=== PATIENT | female | born 1965 | race Caucasian/White ===

== ENCOUNTER 2019-10-16 06:37 | Day surgery (SDC) | payer BC ==
[~2019-10-16 06:37] MED LIST: ACETAMINOPHEN 1,000 MG/100 ML BTL IVPB ONE; CLINDAMYCIN 600MG/50ML PREMIX 600 MG/50 ML BAG IVPB ONE; FAMOTIDINE 20MG TABLET PO ONE; MECLIZINE 25 MG TABLET PO ONE; METOCLOPRAMIDE 10 MG TABLET PO ONE
[2019-10-16] MEDS ORDERED: RINGERS SOLUTION,LACTATED 1,000 ML IV ONE (07:30)
--- NOTE | 2019-10-16 07:35 | History and Physical - [facility] ---
CHIEF COMPLAINT/HISTORY OF CHIEF COMPLAINT: This patient presents with a history of intractable lumbar radiculopathy. On 02/16/16 a spinal cord stimulator implant was performed which although initially seemed to be quite functional, over time lost its ability to control pain. She was given the option to revise or remove and she opted to remove. PAST MEDICAL HISTORY: Headaches and gastritis. PAST SURGICAL HISTORY: Ulnar nerve transposition and spinal cord stimulator implant. MEDICATIONS ON ADMISSION: List to be provided. ALLERGIES: PENICILLIN, SULFA, KEFLEX, ASPIRIN, SKELAXIN, AND VALIUM. FAMILY/PSYCHOSOCIAL HISTORY: Social history - Caffeine. Family history - Hypothyroidism, coronary artery disease, cerebrovascular disease, and hypertension. SYSTEMS REVIEW: The patient is appropriate in no acute distress. The remainder of the systems review is positive for glasses, peripheral neuropathy, and depression. PHYSICAL EXAMINATION: Height is 5'6", weight is 200 pounds. No vital signs. HEENT: Within normal limits. LUNGS: Clear. HEART: Rapid and regular. ABDOMEN: Nontender. MUSCULOSKELETAL: Examination of the musculoskeletal system shows the generator in the posterior gluteal margin incision intact. Midline incision for the leads is identified and intact. NEUROLOGIC: Cranial nerves are intact. IMPRESSION: 1. LUMBAR RADICULOPATHY, ICD-10 CODE M54.16 AND M54.17. 2. IMPLANTED SPINAL CORD STIMULATOR INTERNAL GENERATOR NONFUNCTIONAL. PLAN: The patient is here for removal of the stimulator and generator on an outpatient basis. The risks, side effects, and complications have been reviewed and discussed. JOB NUMBER: [id number] MTDD
[2019-10-16] MEDS ORDERED: Clindamycin 600mg vial 150 MG/ML VIAL IR ONE (08:26)
[2019-10-16] MEDS ORDERED: LIDOCAINE 1% W/EPI 1:100,000 MDV 20 ML VIAL SQ ONE (08:33)
[2019-10-16] MEDS ORDERED: BUPIVACAINE 0.5% W/EPI MPF 30 ML VIAL SQ ONE (08:34)
[2019-10-16] MEDS ORDERED: HYDROCODONE/APAP 7.5/325MG TABLET PO ONE (09:01)
--- NOTE | 2019-10-17 08:12 | Operative Note - [facility] ---
DATE OF SURGERY: 10/16/2019 PREOPERATIVE DIAGNOSIS: 1. LUMBAR RADICULOPATHY, ICD-10 CODE M54.16 AND M54.17. 2. SPINAL CORD STIMULATOR INTERNAL GENERATOR NONFUNCTIONAL. OPERATION: 1. INCISION, SUBCUTANEOUS DISSECTION, AND REMOVAL OF TWO INDWELLING PERIPHERAL NERVE STIMULATORS. 2. INCISION, SUBCUTANEOUS DISSECTION, AND REMOVAL OF INTERNAL PULSE GENERATOR. SURGEON: Brad Stock D.O. ANESTHESIA: Local sedation. ANESTHESIA PROVIDER: Teddy Busby CRNA INDICATION: This patient presents with a history of intractable lumbar radiculopathy. Due to the failure of therapy a two lead spinal cord peripheral stimulator was implanted. Over the years it seemed to help, but over the last year it failed. When given the option to revise or remove she opted to removed. PROCEDURE: Intravenous line,, vital sign monitoring, IV sedation, prepped and draped, sterile technique. Under imaging the incisional site left and right of midline for the peripheral nerve stimulator was identified and marked, skin infiltrated, incision made, and subcutaneous dissection was conducted to the leads. [place] removed and leads removed intact. At the left posterior gluteal margin generator pouch the skin was infiltrated, incision was made, and subcutaneous dissection was conducted to the generator. The generator was removed along with its connections. Antibiotic irrigation, Bovie for hemostasis. The incisions were then closed using 2-0 Vicryl and radha for the skin. An Op-Site dressing was placed. She was transported to the Recovery Room stable. No side effects from the procedure or sedation. When fully awake and alert she was prepared for discharge. DISCHARGE INSTRUCTIONS: 1. The sites are to remain clean and dry. No showering or bathing in any way that would disrupt the dressings, if it happens contact the clinic. 2. Standard medications are resumed including the antibiotic Levaquin 500 mg once a day for fourteen days. 3. Pain medications have been provided through the primary. Office to contact the patient in 12-24 hours to set up a time in 7-10 days for us to evaluate the sites and remove the radha. All other instructions are provided. Numbers to contact if problems given. At that time we will order an MRI by her request. JOB NUMBER: [id number] MTDD
== END 2019-10-16 09:25 | disposition home or self-care (01) ==
LOC: SUR 06:37
PROVIDERS: ATTEND Pain Medicine Interventional Pain Medicine
DX: M54.16 Radiculopathy, lumbar region (principal); M54.17 Radiculopathy, lumbosacral region; T85.193A Other mechanical complication of implanted electronic neurostimulator, generator, initial encounter; I10 Essential (primary) hypertension; E78.00 Pure hypercholesterolemia, unspecified; E11.9 Type 2 diabetes mellitus without complications; K21.9 Gastro-esophageal reflux disease without esophagitis; F90.9 Attention-deficit hyperactivity disorder, unspecified type; J44.9 Chronic obstructive pulmonary disease, unspecified; E66.9 Obesity, unspecified; F17.210 Nicotine dependence, cigarettes, uncomplicated
CPT/HCPCS: 36416; 82948; J7120